=== PATIENT | male | born 1935 | race Caucasian/White ===

== ENCOUNTER → 2017-04-02 | Outpatient (CLI) | payer OTHER, MEDICAID ==
--- NOTE | 2017-04-02 11:07 | RADONC ---
RADIATION ONCOLOGY CONSULTATION NOTE DATE: 04/02/2017 CHART NUMBER: DIAGNOSIS: Basal cell carcinoma. STAGE: II, T2N0M0. ECOG PERFORMANCE STATUS: 4. CONSULTATION NOTE: Mr. Younger is a pleasant 81-year-old white male with the diagnosis what appears to be a stage II, T2N0M0, basal cell carcinoma of his right ear who is presenting to us today for consideration of definitive external beam radiation therapy with curative intent. HISTORY OF PRESENT ILLNESS: The patient is in a nursing care facility and has a long list of multiple medical issues. Apparently he has had a progressive ulcerative lesion involving his ear on the right side. On 03/18/2017 he underwent a excisional biopsy and pathology revealed a basal cell carcinoma. The patient is presenting for discussion of external beam radiation therapy as a therapeutic option. PAST MEDICAL HISTORY: The patient's past medical history is positive for hypertension, a stroke, depression, osteoarthritis and Parkinson's. He has an umbilical hernia with dysphasia and he has had a hip replacement. ALLERGIES: The patient has no known drug allergies. SOCIAL HISTORY: The patient had smoked one pack of cigarettes or can of chewing tobacco a day. He does not abuse alcohol. FAMILY HISTORY: The patient's family history is noncontributory. REVIEW OF SYSTEMS: The patient's review of systems is positive for physical limitations. He is wheelchair bound. He has depression as well as difficulty chewing and swallowing. He has extreme weakness in his arms and legs and decreased energy. He has a history of loss of balance and falling down. He also has the ulcerated right ear. He is quite hard of hearing. He has dementia. He denies nausea, vomiting, fevers, chills, night sweats, diplopia, headaches, chest pain, urinary or bowel difficulties. PHYSICAL EXAMINATION: The patient is presenting in a wheelchair. HEENT: Exam is normocephalic, atraumatic. There is clearly an ulcerative lesion involving his right ear and the preauricular area. There are no other suspicious lesions visible. There is no palpable preauricular, cervical of supraclavicular lymphadenopathy present. ASSESSMENT: The patient is presenting to us today with what appears to be a stage II, T2N0M0 basal cell carcinoma involving his right ear and preauricular area. Clearly the patient is a candidate for external beam radiation therapy and I have so informed him. 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 We have discussed logistics of treatment planning, simulation and subsequent fractionated daily radiation treatments. I have scheduled the patient for the next available simulation slot and radiation treatments will follow. In light of the fact that this lesion is now causing difficulties. It is not unreasonable to offer him treatment at this point. cc: AGNES Huggins
--- NOTE | 2017-04-04 10:59 | RADONC ---
RADIATION ONCOLOGY SIMULATION NOTE DATE: 04/04/2017 CHART NUMBER: [id number] Mr. Younger was taken to the linear accelerator today for clinical setup of his right ear electron field. Setup was accomplished without difficulty or discomfort. Radiation treatment planning is underway and radiation treatments will begin subsequently. An immobilization device was created and will be used throughout the course of treatment. I was physically present throughout the course of electron simulation.
== END ==
LOC: M ONCR 09:09
PROVIDERS: ATTEND Radiology Radiation Oncology
DX: C44.212 Basal cell carcinoma of skin of right ear and external auricular canal (principal)

== ENCOUNTER 2017-04-04 15:37 | Outpatient (RCR) | payer OTHER, MEDICAID ==
--- NOTE | 2017-04-22 13:25 | RADONC ---
RADIATION ONCOLOGY PROGRESS NOTE: DATE: 04/22/2017 Once again, we have been calling Mr. Younger to come in to us to initiate his radiation treatments. Once again, the patient has refused to come for treatment. At this time we will continue to leave the patient on our schedule. Radiation will continue to be available to him should he decide he wants treatment to his right ear.
== END 2017-04-22 ==
LOC: M ONCR 15:37
PROVIDERS: ATTEND Radiology Radiation Oncology
DX: C44.212 Basal cell carcinoma of skin of right ear and external auricular canal (principal)

== ENCOUNTER 2017-04-24 11:46 | Outpatient (RCR) | payer OTHER, MEDICAID ==
--- NOTE | 2017-04-29 11:59 | RADONC ---
RADIATION ONCOLOGY PROGRESS NOTE DATE: 04/29/2017 CHART NUMBER: [id number] Mr. Younger is presently at a dose of 800 cGy to his right ear and is tolerating treatments quite well at this point with no complaints related to his radiation therapy. He is having no new ear pain or other problems. REVIEW OF SYSTEMS: The patient's review of systems is unchanged. He remains arriving in a stretcher. PHYSICAL EXAMINATION: The skin over the treated field is unchanged. There is no moist or dry desquamation. There continues to be an ulcerative tumor. ASSESSMENT: Radiation is well tolerated and will continue as scheduled.
--- NOTE | 2017-05-06 11:31 | RADONC ---
RADIATION ONCOLOGY PROGRESS NOTE DATE: 05/06/2017 CHART NUMBER: [id number] Mr. Younger is presently at a dose of 1600 centigrade to his right ear and is tolerating treatments quite well at this point with no complaints related to his radiation therapy. REVIEW OF SYSTEMS: The patient's review of systems is noncontributory. He is not very communicative. He is presenting in a stretcher. PHYSICAL EXAMINATION: On physical exam, the ear actually looks better today. It appears that we are getting a response to treatment. The skin in the treated field shows no evidence of moist or dry desquamation and overall is in good condition. Mr. Younger is tolerating treatments quite well and radiation will continue as scheduled.
--- NOTE | 2017-05-13 12:47 | RADONC ---
RADIATION ONCOLOGY PROGRESS NOTE DATE: 05/13/2017 CHART NUMBER: [id number] Mr. Younger is presently at a dose of 2600 cGy to his right ear and is tolerating treatments quite well at this point with no complaints related to his radiation therapy. He has no ear pain. The patient's review of systems is unchanged. He continues to present in a stretcher. PHYSICAL EXAM: The patient's skin shows no evidence of moist or dry desquamation. The remainder of his physical exam remains unchanged. Mr. Younger is tolerating treatments quite well and radiation will continue as scheduled.
--- NOTE | 2017-05-21 07:31 | RADONC ---
RADIATION ONCOLOGY PROGRESS NOTE DATE: 05/20/2017 CHART NUMBER: [id number] Mr. Younger is presently at a dose of 3600 cGy to his right ear and is tolerating treatments quite well at this point with no complaints related to his radiation therapy. He is having no ear pain or other problems. The patient's review of systems continues to be positive for his physical limitations. He presents in a stretcher and is housed in a correction. His review of systems is basically unchanged. PHYSICAL EXAMINATION: The patient's lesion seems to be responding nicely. It appears to be smaller in size at this time. The remainder of his physical exam remains unchanged. Mr. Younger is tolerating treatments quite well and radiation will continue as scheduled.
== END 2017-05-23 ==
LOC: M ONCR 11:46
PROVIDERS: ATTEND Radiology Radiation Oncology
DX: C44.212 Basal cell carcinoma of skin of right ear and external auricular canal (principal)

== ENCOUNTER 2017-05-24 13:23 | Outpatient (RCR) | payer OTHER ==
--- NOTE | 2017-05-29 10:01 | RADONC ---
RADIATION ONCOLOGY PROGRESS NOTE: DATE: 05/28/2017 CHART NUMBER: [id number]. PROGRESS NOTE: Mr. Younger is presently at a dose of 4400 cGy to his right ear and is tolerating treatments well at this point with no complaints related to his radiation therapy. He is having no significant ear pain. The patient's review of systems is positive for physical limitations. He remains in a stretcher. This is unchanged. The patient's physical exam shows some erythema of the skin around the treated area. It is responding nicely, however. The remainder of his physical exam remains unchanged. Mr. Ramana Younger is tolerating treatments quite well and radiation will continue as scheduled.
--- NOTE | 2017-06-04 07:05 | RADONC ---
RADIATION ONCOLOGY PROGRESS NOTE DATE: 06/03/2017 CHART NUMBER: [id number] Mr. Younger is presently at a dose of 5200 cGy to his right ear and is tolerating treatments quite well at this point with no complaints related to his radiation therapy. He is having no skin or ear discomfort at the present time. REVIEW OF SYSTEMS: The patient's review of systems is noncontributory. Denies nausea, vomiting, fevers, chills, night sweats, diplopia, headaches, anxiety or depression, anorexia, weight loss, visual disturbances, chest pain, urinary or bowel difficulties, bone pain, or neurological problems. PHYSICAL EXAMINATION: The patient's skin is in good condition with some erythema and tanning present. The lesion itself appears to be shrinking nicely. The remainder of his physical exam remains unchanged. Mr. Younger is tolerating treatments quite well and radiation will continue as scheduled.
--- NOTE | 2017-06-10 09:38 | RADONC ---
RADIATION ONCOLOGY TREATMENT SUMMARY: DATE OF SERVICE: 06/07/2017 CHART NUMBER: [id number] DIAGNOSIS: Basal cell carcinoma. STAGE: II, T2N0M0. ECOG PERFORMANCE STATUS: 4 Mr. Younger is an 82-year-old white male with the diagnosis of what appears to be a stage II, T2N0M0 basal cell carcinoma of his right ear who presented to us for consideration of definitive external beam radiation therapy. We treated the patient to his right ear for a total dose of 6000 cGy delivered in 30 fractions of 200 cGy each over 44 elapsed days from 04/24/2017 through 06/07/2017. The patient's right ear was treated on a linear accelerator utilizing a 9 MEV electron beam prescribed to the 90% isodose line via an en face technique. 0.5 cm of tissue equivalent bolus was placed over the field. Mr. Younger tolerated his treatments quite well and was able to complete therapy as prescribed without interruption. He did have an excellent response to treatment with the marked reduction in the size of his lesion. I have scheduled the patient to see me again in 1 month for further followup. He will also continue to be followed by his other physicians as well. cc: AGNES Huggins
== END 2017-06-22 ==
LOC: M ONCR 13:23
PROVIDERS: ATTEND Radiology Radiation Oncology
DX: C44.212 Basal cell carcinoma of skin of right ear and external auricular canal (principal)

== ENCOUNTER → 2017-07-17 | Outpatient (CLI) | payer OTHER ==
--- NOTE | 2017-07-19 07:34 | RADONC ---
RADIATION ONCOLOGY FOLLOWUP NOTE: DATE: 07/17/2017 CHART NUMBER: [id number] DIAGNOSIS: Basal cell carcinoma. STAGE: II, T2N0M0 ECOG PERFORMANCE STATUS: 4 Mr. Younger is a very pleasant 82-year-old white male with the diagnosis of a stage II, T2N0M0 basal cell carcinoma of his right ear who is presenting to us today for routine followup visit 1 month post completion of external beam radiation therapy. The patient presents today reporting that generally he is doing extremely well with no complaints at this time related to his radiation therapy or disease. He is having no skin pain or other discomfort. REVIEW OF SYSTEMS: The patient's review of systems remains positive for his physical limitations and the need to reside in an assisted care facility. It is otherwise noncontributory. He denies any new issues such as pain or discomfort. PHYSICAL EXAMINATION: There is been a remarkable response with a large decrease in the size of his lesion. There still remains some residual but this appears to be shrinking. There is no palpable cervical, supraclavicular, infraclavicular, axillary or inguinal lymphadenopathy present. ASSESSMENT: The patient is clinically doing quite well. In light of his difficulty with transportation, I have not scheduled any followup in our office except on a as needed basis. I suspect that this lesion will continue to shrink over the next several months. 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 He will be followed by his other physicians in the meantime. cc: AGNES Huggins
== END ==
LOC: M ONCR 12:59
PROVIDERS: ATTEND Radiology Radiation Oncology
DX: Z08 Encounter for follow-up examination after completed treatment for malignant neoplasm (principal); C44.212 Basal cell carcinoma of skin of right ear and external auricular canal; Z92.3 Personal history of irradiation